=== PATIENT | female | born 1965 | race Caucasian/White ===

== ENCOUNTER 2019-05-10 17:56 | Inpatient (IN) | payer OTHER ==
[~2019-05-10] VITALS: Ht 162.6 cm; Wt 87.2 kg
[~2019-05-10 17:56] MED LIST: ALPR0.5T6 PO; ERTA1VIA3 IVPB; Work Note
[2019-05-10] MEDS ORDERED: ONDANSETRON 4 MG INJ IV STA ×2 (19:27→21:37)
[2019-05-10] MEDS ORDERED: SODIUM CHLORIDE 0.9% 1L BAG IV* STA (19:27)
[2019-05-10] MEDS ORDERED: morphine 4 MG/ML VIAL IV STA (19:27)
[2019-05-10] MEDS ORDERED: PIPER-TAZO 3.375 GM IV (PMX) 100 ML IVPB STA (19:27)
[2019-05-10] MEDS ORDERED: ONDANSETRON 4 MG INJ IV PRN (20:30)
[2019-05-10] MEDS ORDERED: ACETAMINOPHEN 325 MG TAB PO PRN (20:30)
[2019-05-11] MEDS ORDERED: ALBUTEROL/IPRATROPIUM (NEB) 3 ML AMP HHN PRN (00:30)
[2019-05-11] MEDS ORDERED: NACL 0.9% 3 ML SYG IV SCH (00:30)
[2019-05-11] MEDS ORDERED: ONDANSETRON 4 MG INJ IV PRN (00:30)
[2019-05-11 02:30] VITALS: BP 120/58; PULSE 51; RESP 18
[2019-05-11] MEDS: SOD CHLORIDE 0.9% 1,000 ML IV SCH ×3 (04:21→14:31)
[2019-05-11 09:13] VITALS: BP 111/56; PULSE 51; RESP 18
[2019-05-11] MEDS ORDERED: POTASSIUM CHLORIDE (SR) 20 MEQ TAB PO STA (09:14)
[2019-05-11] MEDS: HEPARIN 5,000 UNIT/1 ML VIAL SC SCH ×2 (09:19→20:43)
[2019-05-11] MEDS: MEROPENEM 500MG/50 ML (PMX) 50 ML IVPB SCH ×2 (11:01→20:42)
[2019-05-11 14:36] VITALS: BP 118/56; PULSE 56; RESP 19
[2019-05-11] MEDS: DULOXETINE 30 MG CAP DR PO SCH (15:15)
[2019-05-11 20:48] VITALS: BP 118/56; PULSE 52; RESP 20
[2019-05-12 02:46] VITALS: BP 133/62; PULSE 62; RESP 18
[2019-05-12] MEDS: SOD CHLORIDE 0.9% 1,000 ML IV SCH ×2 (06:38→17:16)
[2019-05-12] MEDS: HEPARIN 5,000 UNIT/1 ML VIAL SC SCH ×2 (08:45→21:59)
[2019-05-12] MEDS: MEROPENEM 500MG/50 ML (PMX) 50 ML IVPB SCH ×2 (08:45→21:54)
[2019-05-12] MEDS: DULOXETINE 30 MG CAP DR PO SCH (08:45)
[2019-05-12 08:58] VITALS: BP 112/59; PULSE 48; RESP 18
[2019-05-12 15:15] VITALS: BP 115/57; PULSE 57; RESP 18
[2019-05-12 20:00] VITALS: BP 126/61; PULSE 54; RESP 18
[2019-05-12] MEDS: ALPRAZOLAM 0.5 MG TAB PO PRN (22:02)
[2019-05-13 02:00] VITALS: BP 159/75; PULSE 76; RESP 17
[2019-05-13] MEDS: SOD CHLORIDE 0.9% 1,000 ML IV SCH ×2 (03:07→13:37)
[2019-05-13 07:45] VITALS: BP 117/71; PULSE 51; RESP 16
[2019-05-13] MEDS: MEROPENEM 500MG/50 ML (PMX) 50 ML IVPB SCH ×2 (08:42→20:29)
[2019-05-13] MEDS: POLYETHYLENE GLYCOL 17 GM PACKET PO SCH (08:43)
[2019-05-13] MEDS: DULOXETINE 30 MG CAP DR PO SCH (08:43)
[2019-05-13] MEDS: HEPARIN 5,000 UNIT/1 ML VIAL SC SCH ×2 (08:46→20:41)
[2019-05-13] MEDS: ACETAMINOPHEN 325 MG TAB PO PRN (08:47)
[2019-05-13 14:17] VITALS: BP 114/57; PULSE 56; RESP 18
[2019-05-13] MEDS: ALPRAZOLAM 0.5 MG TAB PO PRN (20:29)
[2019-05-13] MEDS: FLUTICASONE 0.05% 16 GM NAS SPRAY NASAL SCH (20:29)
[2019-05-13 20:50] VITALS: BP 121/60; PULSE 53; RESP 20
[2019-05-14 02:51] VITALS: BP 111/68; PULSE 54; RESP 16
[2019-05-14 08:07] VITALS: BP 107/62; PULSE 47; RESP 16
[2019-05-14] MEDS: MEROPENEM 500MG/50 ML (PMX) 50 ML IVPB SCH ×2 (08:38→20:24)
[2019-05-14] MEDS: HEPARIN 5,000 UNIT/1 ML VIAL SC SCH ×2 (08:39→20:26)
[2019-05-14] MEDS: POLYETHYLENE GLYCOL 17 GM PACKET PO SCH (08:40)
[2019-05-14] MEDS: DULOXETINE 30 MG CAP DR PO SCH (08:40)
[2019-05-14] MEDS: FLUTICASONE 0.05% 16 GM NAS SPRAY NASAL SCH ×2 (08:40→20:24)
[2019-05-14 14:00] VITALS: BP 128/59; PULSE 64; RESP 17
[2019-05-14] MEDS: ACETAMINOPHEN 325 MG TAB PO PRN (18:18)
[2019-05-14 20:00] VITALS: BP 129/59; PULSE 97; RESP 18
[2019-05-14] MEDS: L ACIDOPHIL/B LACTIS/B LONGUM CAPSULE PO SCH (20:24)
[2019-05-15 02:00] VITALS: BP 116/57; PULSE 58; RESP 17
[2019-05-15] MEDS: ALPRAZOLAM 0.5 MG TAB PO PRN (02:04)
[2019-05-15 08:00] VITALS: BP 132/64; PULSE 82; RESP 18
[2019-05-15] MEDS: ACETAMINOPHEN 325 MG TAB PO PRN (09:01)
[2019-05-15] MEDS: FLUTICASONE 0.05% 16 GM NAS SPRAY NASAL SCH (09:04)
[2019-05-15] MEDS: L ACIDOPHIL/B LACTIS/B LONGUM CAPSULE PO SCH (09:04)
[2019-05-15] MEDS: MEROPENEM 500MG/50 ML (PMX) 50 ML IVPB SCH (09:04)
[2019-05-15] MEDS: DULOXETINE 30 MG CAP DR PO SCH (09:04)
[2019-05-15] MEDS: POLYETHYLENE GLYCOL 17 GM PACKET PO SCH (09:05)
[2019-05-15] MEDS: HEPARIN 5,000 UNIT/1 ML VIAL SC SCH (09:06)
== END 2019-05-15 15:17 | disposition home health service (06) | DRG 872 ==
LOC: E/R 17:56 → 5EC 20:12
PROVIDERS: ADMIT Internal Medicine; ATTEND Internal Medicine
DX: A41.9 Sepsis, unspecified organism (principal); N39.0 Urinary tract infection, site not specified; N10 Acute pyelonephritis; E66.01 Morbid (severe) obesity due to excess calories; F32.9 Major depressive disorder, single episode, unspecified; F41.9 Anxiety disorder, unspecified; E87.6 Hypokalemia; Z68.33 Body mass index [BMI] 33.0-33.9, adult; Z71.3 Dietary counseling and surveillance; Z90.49 Acquired absence of other specified parts of digestive tract; K21.9 Gastro-esophageal reflux disease without esophagitis; B96.1 Klebsiella pneumoniae [K. pneumoniae] as the cause of diseases classified elsewhere
CPT/HCPCS: 36415; 71045; 80048; 80053; 81001; 81003; 83036; 83605; 83735; 84100; 84484; 85025; 85610; 85730; 87081; 87086; 93005; J1644; J2185; J2270; J2405; J2543; J7030